=== PATIENT | female | born 1970 | race Caucasian/White ===

== ENCOUNTER 2017-11-19 23:06 | Emergency (ER) | payer OTHER ==
[~2017-11-19] VITALS: Ht 165.1 cm; Wt 65.0 kg
[~2017-11-19 23:06] MED LIST: ALPR.25 PO; CYAN1TAB24; PROP40TA3 PO; VITA1000 PO
[2017-11-19 23:17] VITALS: BP 141/72; PULSE 72; RESP 16; TEMP 97.5; O2SAT 97
--- NOTE | 2017-11-19 23:33 | RADRPT ---
EXAM DATE/TIME: 11/19/2017 23:09 [place] COMPARISON: No previous studies available for comparison. INDICATIONS : Left leg swelling. MEDICAL HISTORY : Hypertension. Pulmonary embolism. Deep vein thrombosis. Anxiety. SURGICAL HISTORY : Tubal ligation. section. Left ankle surgery with hardware. ENCOUNTER: Initial ACUITY: 1 week PAIN SCORE: 1/10 LOCATION: Left leg. TECHNIQUE: Venous ultrasound of the leg was performed from the inguinal ligament to the proximal calf. Real-lynette e, color Doppler and spectral tracing, compression and augmentation techniques were used. FINDINGS: There is normal compressibility of the deep venous system from the inguinal region to the proximal ca lf. No echogenic clot is seen in the lumen of the common femoral, femoral, popliteal, and posterior tibial veins. There is a normal response of the venous system to proximal and distal augmentation an d respiration. CONCLUSION: No evidence of left lower extremity DVT. Gallito Tony MD on November 19, 2017 at 23:31 Board Certified Radiologist. This report was verified electronically.
--- NOTE | 2017-11-19 23:47 | PD ---
HPI Chief Complaint: Medical Clearance Time Seen by Provider: 23:08 Travel History International Travel<30 days: No Contact w/Intl Traveler<30days: No Traveled to known affect area: No History of Present Illness HPI 47 year-old woman left leg pain and swelling, history of DVT, seen at [facility] and then sent to the ED for ultrasound. Lab work and CT pulmonary angiogram were negative and [facility]. History Past Medical History Narrative Medical History DVT and PE Hypertension Social History Alcohol Use: No Tobacco Use: Yes (2 PPD) Allergies-Medications (Allergen,Severity, Reaction): Coded Allergies: No Known Allergies (Unverified , 11/19/17) Reported Meds & Prescriptions Reported Meds & Active Scripts Active Reported Propranolol (Propranolol HCl) 40 Mg Tab 40 Mg PO HS Xanax (Alprazolam) 0.25 Mg Tab 0.25 Mg PO HS PRN Vitamin D-1000 (Cholecalciferol) 1,000 Unit Tab 1,000 Units PO DAILY B12 (Cyanocobalamin) 1,000 Mcg Tab Review of Systems Except as stated in HPI: all other systems reviewed are Neg Physical Exam Narrative GENERAL: 47-year-old woman, generally well-appearing, no acute distress. SKIN: Warm and dry. CARDIOVASCULAR: Warm and well perfused. RESPIRATORY: Normal rate and effort. MUSCULOSKELETAL: Trace edema in the left leg. Good pulses. NEUROLOGICAL: Awake and alert. No gross deficits. Data Data Last Documented VS Vital Signs Date Time Temp Pulse Resp B/P (MAP) Pulse Ox O2 Delivery O2 Flow Rate FiO2 11/19/17 23:17 97.5 72 16 141/72 (95) 97 Orders Orders Us Leg Venous Doppler (11/19/17 ) MDM Medical Decision Making Medical Screen Exam Complete: Yes Emergency Medical Condition: Yes Interpretation(s) Ultrasound negative for DVT Differential Diagnosis DVT, edema, swelling, other Narrative Course 47-year-old woman presents ED for evaluation for left leg swelling. Reviewed previous workup. Labs CT. Looks well. I spoke with Dr. Ware on the phone prior to the patient's transfer. Recommend outpatient follow-up. Diagnosis Primary Impression: Leg pain Additional Instructions: Follow-up with your primary doctor. Return to the emergency department for any worsening chest pain, or any other new or worsening symptoms. Med/Other Pt SpecificInfo: No Change to Meds Disposition: 01 DISCHARGE HOME Condition: Stable Chris Contreras MD Nov 19, 2017 23:47
[2017-12-21] MEDS ORDERED: AUGM875T3 PO (18:27)
[2017-12-21] MEDS ORDERED: LORA-400 PO (18:27)
[2017-12-21] MEDS ORDERED: MECL-62 PO (18:27)
== END 2017-11-20 00:45 | disposition home or self-care (01) ==
LOC: NEPD 23:06
DX: M79.605 Pain in left leg (principal); I10 Essential (primary) hypertension; F17.210 Nicotine dependence, cigarettes, uncomplicated; Z86.711 Personal history of pulmonary embolism; Z86.718 Personal history of other venous thrombosis and embolism; Z79.899 Other long term (current) drug therapy
CPT/HCPCS: 93971; 99281; Q9967; 71275; 80048; 82550; 83735; 84484; 84703; 85025; 85610; 85730; 93005; 99285